=== PATIENT | female | born 1985 | race Caucasian/White ===

== ENCOUNTER 2020-07-12 02:50 | Emergency (ER) | payer MEDICAID ==
[~2020-07-12] VITALS: Ht 152.4 cm; Wt 113.6 kg
[~2020-07-12 02:50] MED LIST: AMOXICILLIN 50500 MG PO; LEXAPRO 5MG5 MG PO; MACROBID 1100 MG/CAP PO; MACROBID100 MG PO; MOTRIN 600600 MG/TAB PO; NO HOME MEDICATIONS; PERCOCET 325 MG1 TA2 PO; PHENERGAN 25 TA25 MG PO; PRENATAL1 TA2 PO
[2020-07-12 02:53] VITALS: TEMP 97.9
[2020-07-12 03:39] LABS: COLLECTION METHOD CLEAN CATCH
[2020-07-12 03:55] LABS: PH 5 (5-8); URINE APPEARANCE Hazy; URINE BACTERIA None Seen /hpf; URINE BILIRUBIN Negative (NEGATIVE); URINE BLOOD 3+ (NEGATIVE); URINE COLOR Straw; URINE GLUCOSE Negative (NEGATIVE); URINE KETONE Negative (NEGATIVE); URINE LEUKOCYTE ESTERASE Trace (NEGATIVE); URINE NITRATE Negative (NEGATIVE); URINE PROTEIN(semi-quant) Negative (NEGATIVE); URINE RBC 20-50 /hpf; URINE UROBILINOGEN Negative (NEGATIVE)
[2020-07-12 03:57] LABS: BASO # 0.1 (0.0-0.2); BASO % 0.5 % (0.0-2.0); EOS # 0.2 (0.0-0.7); EOS % 2.1 % (0-4.0); GRAN # 5.8 (1.4-6.5); GRAN % 62.2 % (42.2-75.2); HEMATOCRIT 42.3 % (37.0-47.0); HEMOGLOBIN 14.4 g/dl (12.5-16.0); LYMPH # 2.6 (1.2-3.4); LYMPH % 28.5 % (20.0-51.0); MEAN CELL VOLUME 89 fl (80.0-100.0); MEAN CORPUSCULAR HEMOGLOBIN 30 pg (27.0-31.0); MEAN CORPUSCULAR HGB CONC 34 g/dl (33.0-37.0); MEAN PLATELET VOLUME 9.5 fl (7.4-10.4); MONO # 0.5 (0.1-0.6); MONO % 5.9 % (1.7-9.3); PLATELET COUNT 285 K/mm3 (130-400); RED BLOOD COUNT 4.76 M/mm3 (4.10-5.30); REDCELL DISTRIBUTION WIDTH-CV 12.5 % (11.5-14.5)
[2020-07-12 03:59] LABS: TRICYCLIC ANTIDEPRESS URINE NEGATIVE
[2020-07-12 04:09] LABS: ALANINE AMINOTRANSFERASE 37 U/L (4-34); ALBUMIN 4.5 gm/dL (3.5-5.0); ALCOHOL(ethanol),MEDICAL 171 mg/dL; ALKALINE PHOSPHATASE 75 U/L (50-136); ANION GAP 10 mmol/L (7-16); AST,SGOT 28 U/L (15-37); BILIRUBIN,TOTAL 0.4 mg/dL (0.0-1.0); BLOOD UREA NITROGEN 13 mg/dL (7-17); CARBON DIOXIDE 25 mmol/L (22-30); CHLORIDE 109 mmol/L (98-107); CREATININE, serum 0.67 (0.52-1.25); GLUCOSE 88 mg/dL (74-106); POTASSIUM 3.4 mmol/L (3.4-5.0); SODIUM 144 mmol/L (137-145); TOTAL PROTEIN 7.9 gm/dL (6.4-8.2)
[2020-07-12 04:11] LABS: ACETAMINOPHEN < 10 ug/mL (10-30); SALICYLATE < 1.0 mg/dL
[2020-07-12 07:19] VITALS: BP 135/84; PULSE 114
== END 2020-07-12 07:22 | disposition home or self-care (01) ==
LOC: COL.ER 02:50
PROVIDERS: Emergency Medicine
DX: M54.5 Low back pain (principal); F10.129 Alcohol abuse with intoxication, unspecified; F17.200 Nicotine dependence, unspecified, uncomplicated; Z32.02 Encounter for pregnancy test, result negative; Z88.2 Allergy status to sulfonamides; Z79.52 Long term (current) use of systemic steroids

== ENCOUNTER 2020-10-12 22:24 | Emergency (ER) | payer MEDICAID ==
[~2020-10-12] VITALS: Ht 152.4 cm; Wt 109.1 kg
[~2020-10-12 22:24] MED LIST changes: +ATARAX 10MG10 MG/TAB PO; +ZOLOFT 100MG100 MG PO
[2020-10-13 00:47] VITALS: BP 142/70; PULSE 78; TEMP 98
== END 2020-10-13 00:25 | disposition home or self-care (01) ==
LOC: COL.ER 22:24
DX: S01.81XA Laceration without foreign body of other part of head, initial encounter (principal); R45.1 Restlessness and agitation; F17.200 Nicotine dependence, unspecified, uncomplicated; Y04.2XXA Assault by strike against or bumped into by another person, initial encounter

== ENCOUNTER 2020-10-26 13:35 | Emergency (ER) | payer MEDICAID ==
[~2020-10-26] VITALS: Ht 154.9 cm; Wt 100.5 kg
[2020-10-26 13:44] VITALS: TEMP 98.5
[2020-10-26] MEDS ORDERED: CRUTCHES MC (14:25)
[2020-10-26 14:41] VITALS: BP 121/68; PULSE 87
== END 2020-10-26 14:45 | disposition home or self-care (01) ==
LOC: COL.ER 13:35
DX: S93.402A Sprain of unspecified ligament of left ankle, initial encounter (principal); F32.9 Major depressive disorder, single episode, unspecified; F43.10 Post-traumatic stress disorder, unspecified; F17.200 Nicotine dependence, unspecified, uncomplicated; Z88.2 Allergy status to sulfonamides; W00.0XXA Fall on same level due to ice and snow, initial encounter

== ENCOUNTER 2021-01-15 14:24 | Emergency (ER) | payer MEDICAID ==
[~2021-01-15] VITALS: Ht 152.4 cm; Wt 100.0 kg
[~2021-01-15 14:24] MED LIST changes: +CRUTCHES MC
[2021-01-15 14:38] VITALS: TEMP 98.1
[2021-01-15 15:59] LABS: STREP SCREEN NEGATIVE
[2021-01-15 16:15] VITALS: BP 122/70; PULSE 72
[2021-01-15] MEDS ORDERED: MAGIC MOUTH PO (16:18)
== END 2021-01-15 16:17 | disposition home or self-care (01) ==
LOC: COL.ER 14:24
PROVIDERS: Nurse Practitioner
DX: J02.9 Acute pharyngitis, unspecified (principal); F17.210 Nicotine dependence, cigarettes, uncomplicated; Z88.2 Allergy status to sulfonamides

== ENCOUNTER 2021-03-17 14:00 | Emergency (ER) | payer MEDICAID ==
[~2021-03-17] VITALS: Ht 154.9 cm; Wt 97.7 kg
[~2021-03-17 14:00] MED LIST changes: +MAGIC MOUTH PO
[2021-03-17 14:23] VITALS: TEMP 98.6
[2021-03-17] MEDS ORDERED: IBU800 M1 PO (15:07)
[2021-03-17] MEDS ORDERED: AMOXICILLIN 8751 TAB PO (15:07)
[2021-03-17] MEDS ORDERED: TYLENOL 500MG500 MG PO (15:07)
[2021-03-17 15:16] VITALS: BP 130/89; PULSE 91
== END 2021-03-17 15:18 | disposition home or self-care (01) ==
LOC: COL.ER 14:00
DX: S02.5XXA Fracture of tooth (traumatic), initial encounter for closed fracture (principal); K04.7 Periapical abscess without sinus; K02.9 Dental caries, unspecified; F17.210 Nicotine dependence, cigarettes, uncomplicated; X58.XXXA Exposure to other specified factors, initial encounter

== ENCOUNTER 2021-03-31 20:58 | Emergency (ER) | payer MEDICAID ==
[~2021-03-31] VITALS: Ht 154.9 cm; Wt 72.7 kg
[~2021-03-31 20:58] MED LIST changes: +AMOXICILLIN 8751 TAB PO; +IBU800 M1 PO; +TYLENOL 500MG500 MG PO
[2021-03-31 22:27] LABS: COLLECTION METHOD CLEAN CATCH
[2021-03-31 22:30] LABS: BASO # 0.1 (0.0-0.2); BASO % 0.5 % (0.0-2.0); EOS # 0.1 (0.0-0.7); EOS % 1.2 % (0-4.0); GRAN # 6.1 (1.4-6.5); GRAN % 66.6 % (42.2-75.2); HEMATOCRIT 39.3 % (37.0-47.0); HEMOGLOBIN 13.8 g/dl (12.5-16.0); LYMPH # 2.4 (1.2-3.4); MEAN CELL VOLUME 85 fl (80.0-100.0); MEAN CORPUSCULAR HEMOGLOBIN 30 pg (27.0-31.0); MEAN CORPUSCULAR HGB CONC 35 g/dl (33.0-37.0); MEAN PLATELET VOLUME 9.6 fl (7.4-10.4); MONO # 0.5 (0.1-0.6); MONO % 4.9 % (1.7-9.3); PLATELET COUNT 287 K/mm3 (130-400); RED BLOOD COUNT 4.65 M/mm3 (4.10-5.30); REDCELL DISTRIBUTION WIDTH-CV 12.9 % (11.5-14.5)
[2021-03-31 22:36] LABS: PH 5 (5-8); URINE APPEARANCE Hazy; URINE BACTERIA Rare /hpf; URINE BILIRUBIN Negative (NEGATIVE); URINE BLOOD 1+ (NEGATIVE); URINE COLOR Straw; URINE GLUCOSE Negative (NEGATIVE); URINE KETONE Negative (NEGATIVE); URINE LEUKOCYTE ESTERASE Negative (NEGATIVE); URINE NITRATE Negative (NEGATIVE); URINE PROTEIN(semi-quant) Negative (NEGATIVE); URINE RBC 0-2 /hpf; URINE UROBILINOGEN Negative (NEGATIVE)
[2021-03-31 22:46] LABS: TRICYCLIC ANTIDEPRESS URINE NEGATIVE
[2021-03-31 22:50] LABS: ALANINE AMINOTRANSFERASE 25 U/L (4-34); ALBUMIN 4.4 gm/dL (3.5-5.0); ALCOHOL(ethanol),MEDICAL 256 mg/dL; ALKALINE PHOSPHATASE 65 U/L (50-136); ANION GAP 8 mmol/L (7-16); AST,SGOT 36 U/L (15-37); BILIRUBIN,TOTAL 0.2 mg/dL (0.0-1.0); BLOOD UREA NITROGEN 8 mg/dL (7-17); CALCIUM 8.8 mg/dL (8.4-10.2); CARBON DIOXIDE 24 mmol/L (22-30); CHLORIDE 109 mmol/L (98-107); CREATININE, serum 0.54 (0.52-1.25); GLUCOSE 107 mg/dL (74-106); POTASSIUM 3.7 mmol/L (3.4-5.0); SODIUM 142 mmol/L (137-145); TOTAL PROTEIN 7.5 gm/dL (6.4-8.2)
[2021-03-31 22:52] LABS: ACETAMINOPHEN < 10 ug/mL (10-30); SALICYLATE < 1.0 mg/dL
[2021-04-01 06:25] VITALS: BP 142/95; TEMP 98
[2021-04-01 12:27] VITALS: PULSE 95
== END 2021-04-01 12:27 | disposition home or self-care (01) ==
LOC: COL.ER 20:58
PROVIDERS: Nurse Practitioner Primary Care
DX: F10.129 Alcohol abuse with intoxication, unspecified (principal); R45.851 Suicidal ideations; F32.9 Major depressive disorder, single episode, unspecified; F43.10 Post-traumatic stress disorder, unspecified; F17.210 Nicotine dependence, cigarettes, uncomplicated; Z32.02 Encounter for pregnancy test, result negative; Z20.822 Contact with and (suspected) exposure to COVID-19; Z79.899 Other long term (current) drug therapy; Y90.4 Blood alcohol level of 80-99 mg/100 ml

== ENCOUNTER → 2021-04-10 | Outpatient (CLI) | payer MEDICAID ==
[~2021-04-10] MED LIST changes: +CEPHALEXIN500 M1 PO
[2021-04-10 10:22] LABS: BASO % 0.5 % (0.0-2.0); EOS # 0.1 (0.0-0.7); EOS % 1.6 % (0-4.0); GRAN # 5.6 (1.4-6.5); GRAN % 69.2 % (42.2-75.2); HEMATOCRIT 40.8 % (37.0-47.0); HEMOGLOBIN 14.3 g/dl (12.5-16.0); LYMPH # 1.8 (1.2-3.4); LYMPH % 21.6 % (20.0-51.0); MEAN CELL VOLUME 86 fl (80.0-100.0); MEAN CORPUSCULAR HEMOGLOBIN 30 pg (27.0-31.0); MEAN CORPUSCULAR HGB CONC 35 g/dl (33.0-37.0); MEAN PLATELET VOLUME 9.7 fl (7.4-10.4); MONO # 0.5 (0.1-0.6); MONO % 6.7 % (1.7-9.3); PLATELET COUNT 246 K/mm3 (130-400); RED BLOOD COUNT 4.77 M/mm3 (4.10-5.30); REDCELL DISTRIBUTION WIDTH-CV 13.1 % (11.5-14.5)
[2021-04-10 10:32] LABS: ALBUMIN 4.4 gm/dL (3.5-5.0); BILIRUBIN,TOTAL 1.1 mg/dL (0.0-1.0); CALCIUM 9.1 mg/dL (8.4-10.2); CHOLESTEROL RISK RATIO 6.7; CREATININE, serum 0.48 (0.52-1.25); POTASSIUM 3.9 mmol/L (3.4-5.0); TOTAL PROTEIN 7.8 gm/dL (6.4-8.2)
[2021-04-10 12:34] LABS: THYROID STIMULATING HORMONE 3.05 uIU/mL (0.465-4.680)
== END ==
LOC: COL.LAB 09:30
DX: Z79.899 Other long term (current) drug therapy (principal)

== ENCOUNTER 2021-05-15 22:18 | Emergency (ER) | payer MEDICAID ==
[~2021-05-15] VITALS: Ht 152.4 cm; Wt 100.0 kg
[~2021-05-15 22:18] MED LIST changes: -CEPHALEXIN500 M1 PO
[2021-05-15 22:28] VITALS: TEMP 98.3
[2021-05-15 23:05] LABS: COLLECTION METHOD CLEAN CATCH
[2021-05-15 23:07] LABS: BASO # 0.1 (0.0-0.2); BASO % 0.4 % (0.0-2.0); EOS # 0.2 (0.0-0.7); EOS % 1.7 % (0-4.0); GRAN # 7.7 (1.4-6.5); GRAN % 67.5 % (42.2-75.2); HEMATOCRIT 39.2 % (37.0-47.0); HEMOGLOBIN 13.5 g/dl (12.5-16.0); LYMPH # 2.7 (1.2-3.4); LYMPH % 23.9 % (20.0-51.0); MEAN CELL VOLUME 88 fl (80.0-100.0); MEAN CORPUSCULAR HEMOGLOBIN 30 pg (27.0-31.0); MEAN CORPUSCULAR HGB CONC 34 g/dl (33.0-37.0); MEAN PLATELET VOLUME 9.6 fl (7.4-10.4); MONO # 0.7 (0.1-0.6); MONO % 6.1 % (1.7-9.3); PLATELET COUNT 253 K/mm3 (130-400); RED BLOOD COUNT 4.44 M/mm3 (4.10-5.30); REDCELL DISTRIBUTION WIDTH-CV 12.7 % (11.5-14.5)
[2021-05-15 23:14] LABS: PH 7 (5-8); SQUAMOUS EPITHELIAL 0-2 /hpf; URINE APPEARANCE Hazy; URINE BACTERIA None Seen /hpf; URINE BILIRUBIN Negative (NEGATIVE); URINE BLOOD 3+ (NEGATIVE); URINE COLOR Yellow; URINE GLUCOSE Negative (NEGATIVE); URINE KETONE Negative (NEGATIVE); URINE LEUKOCYTE ESTERASE 1+ (NEGATIVE); URINE NITRATE Negative (NEGATIVE); URINE PROTEIN(semi-quant) Negative (NEGATIVE); URINE RBC >50 /hpf; URINE UROBILINOGEN Negative (NEGATIVE)
[2021-05-15 23:23] LABS: ALBUMIN 4.3 gm/dL (3.5-5.0); BILIRUBIN,TOTAL 0.4 mg/dL (0.0-1.0); C-REACTIVE PROTEIN 1.9 mg/dL (0.0-0.9); CALCIUM 9.1 mg/dL (8.4-10.2); CREATININE, serum 0.91 (0.52-1.25); POTASSIUM 3.9 mmol/L (3.4-5.0); TOTAL PROTEIN 7.4 gm/dL (6.4-8.2)
[2021-05-16 01:19] VITALS: BP 134/84; PULSE 84
[2021-05-16] MEDS ORDERED: CEPHALEXIN500 M1 PO (01:19)
== END 2021-05-16 01:34 | disposition home or self-care (01) ==
LOC: COL.ER 22:18
PROVIDERS: Nurse Practitioner Primary Care
DX: N39.0 Urinary tract infection, site not specified (principal); Z32.02 Encounter for pregnancy test, result negative; Z88.2 Allergy status to sulfonamides
CPT/HCPCS: J0696; J1885; J2405; J7030; Q9967

== ENCOUNTER 2021-08-06 15:18 | Emergency (ER) | payer MEDICAID ==
[~2021-08-06] VITALS: Ht 154.9 cm; Wt 106.8 kg
[~2021-08-06 15:18] MED LIST changes: +CEPHALEXIN500 M1 PO
[2021-08-06 15:38] VITALS: TEMP 98.3
[2021-08-06 16:17] LABS: COLLECTION METHOD CLEAN CATCH
[2021-08-06 16:28] LABS: PH 6 (5-8); SQUAMOUS EPITHELIAL 0-2 /hpf; URINE APPEARANCE Clear; URINE BACTERIA Rare /hpf; URINE BILIRUBIN Negative (NEGATIVE); URINE BLOOD Negative (NEGATIVE); URINE COLOR Straw; URINE GLUCOSE Negative (NEGATIVE); URINE KETONE Negative (NEGATIVE); URINE LEUKOCYTE ESTERASE Negative (NEGATIVE); URINE NITRATE Negative (NEGATIVE); URINE PROTEIN(semi-quant) Negative (NEGATIVE); URINE RBC None Seen /hpf; URINE UROBILINOGEN Negative (NEGATIVE)
[2021-08-06 16:37] LABS: BASO % 0.4 % (0.0-2.0); EOS # 0.2 K/mm3 (0.0-0.7); EOS % 1.8 % (0-4.0); GRAN # 6.5 K/mm3 (1.4-6.5); GRAN % 69.9 % (42.2-75.2); HEMOGLOBIN 11.9 g/dl (12.5-16.0); LYMPH # 2.1 K/mm3 (1.2-3.4); LYMPH % 22.5 % (20.0-51.0); MEAN CELL VOLUME 86 fl (80.0-100.0); MEAN CORPUSCULAR HEMOGLOBIN 30 pg (27.0-31.0); MEAN CORPUSCULAR HGB CONC 35 g/dl (33.0-37.0); MEAN PLATELET VOLUME 9.8 fl (7.4-10.4); MONO # 0.5 K/mm3 (0.1-0.6); PLATELET COUNT 227 K/mm3 (130-400); RED BLOOD COUNT 3.97 M/mm3 (4.10-5.30); REDCELL DISTRIBUTION WIDTH-CV 12.7 % (11.5-14.5)
[2021-08-06 16:41] LABS: HEMATOCRIT 34.3 % (37.0-47.0)
[2021-08-06 17:04] LABS: ALBUMIN 3.4 gm/dL (3.5-5.0); BILIRUBIN,TOTAL 0.3 mg/dL (0.2-1.2); CALCIUM 9.7 mg/dL (8.4-10.2); CREATININE, serum 0.54 mg/dL (0.57-1.11); POTASSIUM 3.7 mmol/L (3.5-4.5); TOTAL PROTEIN 6.4 gm/dL (6.2-8.1)
[2021-08-06] MEDS ORDERED: CEPHALEXIN500 M1 PO (17:26)
[2021-08-06 17:55] VITALS: BP 152/79; PULSE 60
== END 2021-08-06 18:05 | disposition home or self-care (01) ==
LOC: COL.ER 15:18
PROVIDERS: Emergency Medicine
DX: N39.0 Urinary tract infection, site not specified (principal); R82.71 Bacteriuria; F43.10 Post-traumatic stress disorder, unspecified; Z20.822 Contact with and (suspected) exposure to COVID-19; Z79.899 Other long term (current) drug therapy
CPT/HCPCS: J2765; J7030

== ENCOUNTER 2021-10-07 10:47 | Emergency (ER) | payer MEDICAID ==
[~2021-10-07] VITALS: Ht 152.4 cm; Wt 106.8 kg
[2021-10-07 10:53] VITALS: TEMP 98.2
[2021-10-07 11:52] LABS: BASO % 0.1 % (0.0-2.0); EOS # 0.1 K/mm3 (0.0-0.7); GRAN # 5.6 K/mm3 (1.4-6.5); GRAN % 73.2 % (42.2-75.2); HEMATOCRIT 32.3 % (37.0-47.0); HEMOGLOBIN 11.4 g/dl (12.5-16.0); LYMPH # 1.4 K/mm3 (1.2-3.4); LYMPH % 18.6 % (20.0-51.0); MEAN CELL VOLUME 86 fl (80.0-100.0); MEAN CORPUSCULAR HEMOGLOBIN 30 pg (27-31); MEAN CORPUSCULAR HGB CONC 35 g/dl (33.0-37.0); MEAN PLATELET VOLUME 10.4 fl (7.4-10.4); MONO # 0.5 K/mm3 (0.1-0.6); MONO % 6.4 % (1.7-9.3); PLATELET COUNT 198 K/mm3 (130-400); RED BLOOD COUNT 3.76 M/mm3 (4.10-5.30); REDCELL DISTRIBUTION WIDTH-CV 12.9 % (11.5-14.5)
[2021-10-07 12:05] LABS: BILIRUBIN,TOTAL 0.4 mg/dL (0.2-1.2); CALCIUM 8.8 mg/dL (8.4-10.2); CREATININE, serum 0.52 mg/dL (0.57-1.11); POTASSIUM 3.2 mmol/L (3.5-4.5); TOTAL PROTEIN 6.2 gm/dL (6.2-8.1)
[2021-10-07 12:47] LABS: COLLECTION METHOD CLEAN CATCH
[2021-10-07 13:00] LABS: PH 6 (5-8); URINE APPEARANCE Hazy (CLEAR/HAZY); URINE BACTERIA Occasional /hpf (NONE SEEN); URINE BILIRUBIN Negative (NEGATIVE); URINE BLOOD Negative (NEGATIVE); URINE COLOR Yellow (YELLOW); URINE GLUCOSE Negative (NEGATIVE); URINE KETONE Trace (NEGATIVE); URINE LEUKOCYTE ESTERASE Negative (NEGATIVE); URINE NITRATE Negative (NEGATIVE); URINE PROTEIN(semi-quant) Negative (NEGATIVE); URINE RBC 0-2 /hpf (0-2); URINE UROBILINOGEN Negative (NEGATIVE)
[2021-10-07 14:01] VITALS: BP 104/60; PULSE 86
== END 2021-10-07 14:05 | disposition home or self-care (01) ==
LOC: COL.ER 10:47
PROVIDERS: Nurse Practitioner
DX: O21.9 Vomiting of pregnancy, unspecified (principal); O99.332 Smoking (tobacco) complicating pregnancy, second trimester; F17.200 Nicotine dependence, unspecified, uncomplicated; Z3A.21 21 weeks gestation of pregnancy
CPT/HCPCS: J2550; J7030

== ENCOUNTER 2021-11-28 21:15 | Outpatient (CLI) | payer MEDICAID ==
[~2021-11-28] VITALS: Ht 154.9 cm; Wt 107.7 kg
--- NOTE | 2021-11-28 21:35 | NUR ---
G7L3 at 28 weeks arrives to unit by wheelchair with complaint of pelvic pain. Pt denies vaginal bleeding or LOF and is feeling good movement. Pt reports feeling abdominal pain on right side. Pt states she thinks she has SPD and has a PT appointment scheduled. Pt oriented to room, bed in low and locked position, call light within reach. Clean gown on. US and toco explained and applied. Admission assessment started. Vitals obtained. SVE 0-1/thick/high Pt appears very anxious and states she is just worried about going into labor early and wants to make sure that this pain is not labor.
[2021-11-28 22:05] VITALS: BP 127/65; PULSE 94; TEMP 98.4
--- NOTE | 2021-11-28 22:10 | NUR ---
Dr. Mariscal on unit, reviewing FHR tracing. OK to discontinue monitoring and discharge per Dr. Mariscal.
[2021-11-28] MEDS ORDERED: TYLENOL 500MG500 MG PO (22:23)
--- NOTE | 2021-11-28 22:30 | NUR ---
Discharge instructions and education given to patient. Pt verbalizes understanding. Pt off unit by wheelchair with spouse.
== END 2021-11-28 22:30 | disposition home or self-care (01) ==
LOC: LDRO 21:15 → LDR 22:06 → LDRO 22:30
DX: O26.893 Other specified pregnancy related conditions, third trimester (principal); R10.2 Pelvic and perineal pain; Z3A.28 28 weeks gestation of pregnancy
CPT/HCPCS: OP

== ENCOUNTER 2022-01-30 19:15 | Outpatient (CLI) | payer MEDICAID ==
[~2022-01-30] VITALS: Ht 154.9 cm; Wt 110.9 kg
--- NOTE | 2022-01-30 19:20 | NUR ---
192 - PATIENT AMUBATORY TO LDR5. PATIENT ORIENTED TO ROOM. PATIENT CHANGES INTO GOWN. 1929 - PATIENT STATES SHE HAS BEEN HAVING CONTRACTIONS SINCE 1699. PATIENT UNABLE TO REPORT HOW FAR APART CONTRACTIONS ARE. REPORTS NO LEAKING OF FLUID, OR BLOODY SHOW. PATIENT REPORTS GOOD MOVEMENT. PLAN OF CARE DISCUSSED. QUESTIONS ANSWERED. PATIENT PLACED ON MONITOR. VITAL SIGNS OBTAINED. 1934 - SVE PERFORMED. . CARE ONGOING.
[2022-01-30 20:00] VITALS: BP 140/86; PULSE 112; TEMP 98.5
[2022-01-30 20:30] VITALS: PULSE 107
[2022-01-30 21:00] VITALS: BP 119/63; PULSE 104
--- NOTE | 2022-01-30 21:20 | NUR ---
2119 - PATIENT GIVEN DISCHARGE INSTRUCTIONS. PATIENT EDUCATED ON DISCOMFORTS OF AND EARLY LABOR AND GIVEN PRINT OUTS FOR BOTH TOPICS. QUESTIONS ANSWERED. AND PATIENT'S MOTHER AT BEDSIDE FOR INSTRUCTION. PATIENT VERBALIZES UNDERSTANDING. PATIENT AND FAMILY ESCORTED TO HOSPITAL ENTRANCE BY RN.
== END 2022-01-30 21:20 | disposition home or self-care (01) ==
LOC: LDRO 19:15 → LDR 19:30 → LDRO 21:20
DX: Z34.93 Encounter for supervision of normal pregnancy, unspecified, third trimester (principal); Z3A.42 42 weeks gestation of pregnancy
CPT/HCPCS: OP

== ENCOUNTER 2022-02-12 05:18 | Inpatient (IN) | payer MEDICAID ==
[~2022-02-12] VITALS: Ht 155 cm; Wt 112.7 kg
[2022-02-12] VITALS (17 sets, daily range): BP systolic 105–137; BP diastolic 62–85; PULSE 72–96; TEMP 97.7–98.1
--- NOTE | 2022-02-12 05:30 | NUR ---
0530 - PATIENT AMBULATORY TO ROOM 2109 ACCOMPANIED BY SPOUSE. PATIENT ORIENTED TO ROOM AND PLAN OF CARE DISCUSSED. PATIENT AGREEABLE TO PLAN. PATIENT CHANGES INTO GOWN. 0545 - PATIENT PLACED ON MONITOR. IV STARTED AND LR INITIATED ORDERED. 0600 - CONSENTS REVIEWED AND SIGNED. CARE ONGOING.
[2022-02-12 06:21] LABS: BASO % 0.2 % (0.0-2.0); EOS # 0.1 K/mm3 (0.0-0.7); GRAN # 9.1 K/mm3 (1.4-6.5); GRAN % 73.3 % (42.2-75.2); HEMOGLOBIN 11.2 g/dl (12.5-16.0); LYMPH # 2.4 K/mm3 (1.2-3.4); LYMPH % 19.2 % (20.0-51.0); MEAN CELL VOLUME 83 fl (80.0-100.0); MEAN CORPUSCULAR HEMOGLOBIN 28 pg (27-31); MEAN CORPUSCULAR HGB CONC 34 g/dl (33.0-37.0); MEAN PLATELET VOLUME 11.1 fl (7.4-10.4); MONO # 0.7 K/mm3 (0.1-0.6); MONO % 5.6 % (1.7-9.3); PLATELET COUNT 198 K/mm3 (130-400); RED BLOOD COUNT 4.01 M/mm3 (4.10-5.30); REDCELL DISTRIBUTION WIDTH-CV 13.4 % (11.5-14.5)
[2022-02-12 06:24] LABS: HEMATOCRIT 33.3 % (37.0-47.0)
[2022-02-12] MEDS ORDERED: ATARAX 10MG10 MG/TAB PO (06:26)
[2022-02-12] MEDS ORDERED: ZOLOFT 50MG50 MG PO (06:26)
[2022-02-12] MEDS ORDERED: PRENATAL TABLET PO (06:27)
[2022-02-12 08:09] LABS: TRICYCLIC ANTIDEPRESS URINE NEGATIVE
[2022-02-13 02:00] VITALS: BP 126/73; PULSE 83; TEMP 97.9
[2022-02-13 08:00] VITALS: BP 132/87; PULSE 90; TEMP 98.1
[2022-02-13] MEDS ORDERED: ROXICODONE 55 MG/TAB PO (08:27)
[2022-02-13] MEDS ORDERED: IBU600 MG PO (08:27)
--- NOTE | 2022-02-13 09:25 | NUR ---
tank worker responded to consult. tank worker met with patient and her Manuel at bedside. This is their fourth child together. Her other children are being care for by her mother while she is in the hospital. They have all needs for baby including a crib, carseat and other necessities to care for the baby. She is planning to breastfeed baby and is actively feeding child during interaction. Patient does admit to suffering from drepression and anxiety. She is no longer seeing a therapist bue to "meeting my goals". She is on medication for treatment and has already talked about increasing her dose as a preventive measure for . Patient has no drug usage notated in chart. Patient is provided the [employer] resource guide and encouraged to reach out is needs arise. Provided information for [facility]rell if she decided to that she needed to reach out to a therapist later.
--- NOTE | 2022-02-13 09:41 | NUR ---
Initial visit attempt; Nurse with patient, Iron Handler left card of congratulations for their son along with information regarding the availability of spiritual care at our hospital.
[2022-02-13 17:10] VITALS: BP 127/75; PULSE 97; TEMP 97.8
[2022-02-13 19:10] VITALS: BP 125/74; PULSE 89; TEMP 98.1
[2022-02-14 07:00] VITALS: BP 142/79; PULSE 87; TEMP 97.3
--- NOTE | 2022-02-17 07:21 | NUR ---
Patient's infant's cord blood was negative for illegal drugs in system.
== END 2022-02-14 11:45 | disposition home or self-care (01) | DRG 788 ==
LOC: OB 05:18
PROVIDERS: ADMIT Obstetrics & Gynecology
PROC: 10D00Z1 Extraction of Products of Conception, Low, Open Approach (ICD-10-PCS; principal; 2022-02-12)
DX: O32.1XX0 Maternal care for breech presentation, not applicable or unspecified (principal); O99.344 Other mental disorders complicating childbirth; F32.A Depression, unspecified; F43.10 Post-traumatic stress disorder, unspecified; O40.3XX0 Polyhydramnios, third trimester, not applicable or unspecified; O99.334 Smoking (tobacco) complicating childbirth; F17.210 Nicotine dependence, cigarettes, uncomplicated; Z37.0 Single live birth; Z3A.39 39 weeks gestation of pregnancy
CPT/HCPCS: J0690; J1100; J2405; J2765; J7120

== ENCOUNTER 2022-06-08 07:22 | Emergency (ER) | payer MEDICAID ==
[~2022-06-08] VITALS: Ht 154.9 cm; Wt 100.9 kg
[~2022-06-08 07:22] MED LIST changes: +IBU600 MG PO; +PRENATAL TABLET PO; +ROXICODONE 55 MG/TAB PO; +ZOLOFT 50MG50 MG PO
[2022-06-08 07:32] VITALS: BP 111/80; TEMP 98
[2022-06-08 07:55] VITALS: PULSE 90
== END 2022-06-08 07:55 | disposition home or self-care (01) ==
LOC: COL.ER 07:22
DX: M65.4 Radial styloid tenosynovitis [de Quervain] (principal); X50.1XXA Overexertion from prolonged static or awkward postures, initial encounter